=== PATIENT | male | born 1955 | race Caucasian/White ===

== ENCOUNTER 2016-12-22 21:53 | Observation (INO) ==
[2016-12-22] MEDS ORDERED: Ipratropium/Albuterol Neb 3 ML IH ONE (22:19)
--- NOTE | 2016-12-22 22:19 | Emergency Department Note ---
Disposition Clinical Impression: Pneumonia Qualifiers: Pneumonia type: due to unspecified organism Laterality: left Lung location: lower lobe of lung Qualified Code(s): J18.1 - Lobar pneumonia, unspecified organism Disposition: Admitted As Inpatient Condition: Fair URI/Sore Throat HPI - General Chief Complaint: ED Dizziness Stated Complaint: dizziness/SOB Time Seen by Provider: 12/22/16 22:06 Source: patient Mode of arrival: private vehicle Limitations: no limitations Nursing Notes Reviewed: Yes Vital Signs Reviewed: Yes - History of Present Illness HPI Narrative: Patient presents to the ED complaining of cough, shortness of breath, chest congestion and feeling lightheaded. States he has been sick off and on for the past 4 weeks. States cough is only occasionally productive of thick yellow sputum. He reports chronic clear rhinorrhea. No sore throat or sneezing. He has had nausea but no vomiting or diarrhea. His only chest discomfort is related to his congestion and coughing. States symptoms got worse last night and he could not lie flat due to his cough and shortness of breath. Normally can lie flat without difficulty. He does report some swelling of his feet and ankles that been going on for several weeks. He reports subjective fever and chills. No urinary symptoms. States his shoulders are sore but no other myalgias. He does smoke a pack per day for over 40 years. States he has had bronchitis since he was a kid. He does not have a primary care doctor. He does not take any routine medications. No flu shot. States he does have a coworker that was sick recently. Reports a history of asthma but is not on any medications for it. No history of any heart problems. States he used to have high blood pressure as a teen but not any current diagnosis or medications for it. - Related Data Home Medications Medication Instructions Recorded Confirmed Naproxen Sodium [Aleve] 440 mg PO DAILY 12/22/16 12/22/16 Allergies Allergy/AdvReac Type Severity Reaction Status Date / Time No Known Allergies Allergy Verified 12/22/16 21:54 Constitutional: Reports: fever (subjective), chills. Denies: weakness, weight change Eyes: Denies: eye pain, eye discharge, vision change ENT ED: Reports: congestion. Denies: ear pain, throat pain, dental pain, hearing loss, epistaxis, dysphagia Cardiovascular: Reports: as per HPI. Denies: chest pain, palpitations, dyspnea on exertion, edema, syncope Respiratory: Reports: cough, dyspnea, sputum production. Denies: wheezes, hemoptysis, stridor Gastrointestinal: Denies: abdominal pain, nausea, vomiting, diarrhea, constipation, hematemesis, melena, hematochezia Genitourinary: Denies: urgency, dysuria, frequency, hematuria Musculoskeletal: Denies: back pain, neck pain, arthralgia, myalgia Integumentary: Denies: rash, abrasion, lesions Neurological: Denies: headache, weakness, numbness, paresthesias, confusion, abnormal gait, vertigo Psychiatric: Denies: anxiety, depression, suicidal thoughts, homicidal thoughts , auditory hallucinations, visual hallucinations Endocrine: Denies: fatigue Hematological/Lymphatic: Denies: easy bleeding, easy bruising Allergic/Immunologic: Denies: facial swelling, urticaria URI PMH - Past Medical History Medical history: Reports: arthritis, asthma Psychiatric history: Reports: no psych history - Social History Smoking Status: Current every day smoker Alcohol use: Reports: occasionally Drug use: Reports: none Physical Exam - General Limitations: no limitations General appearance: alert, in no apparent distress - Head Head exam: atraumatic, normocephalic, normal inspection - Eye Eye exam: Present: normal appearance, PERRL, EOMI - ENT ENT exam: normal exam, normal oropharynx, mucous membranes moist, TM's normal bilaterally, normal external ear exam - Neck Neck exam: Present: normal inspection, full ROM, trachea midline - Chest Chest inspection: Present: normal inspection, symmetric chest wall rise. Absent : tenderness - Respiratory Respiratory exam: Present: prolonged expiratory phase. Absent: respiratory distress, accessory muscle use - Expanded Respiratory Exam Location: wheezes: Left, Right, Upper, Lower (scattered), rhonchi: Left, Right, Upper, Lower (scattered) - Cardiovascular Cardiovascular exam: Present: regular rate, normal rhythm, normal heart sounds - Abdominal Exam Abdominal exam: Present: soft, Non-Tender. Absent: tenderness, distention, guarding, rebound, rigidity - Extremities Exam Extremities exam: Present: normal inspection, full ROM, pedal edema (trace). Absent: tenderness - Back Exam Back exam: Present: normal inspection, full ROM. Absent: tenderness - Neurological Exam Neurological exam: Present: alert, oriented X3 - Psychiatric Psychiatric exam: Present: normal affect, normal mood - Skin Skin exam: Present: warm, dry, intact, normal color Course Course Narrative: Patient presents to the ED with several weeks of intermittent URI symptoms including productive cough and shortness of breath and chest congestion. He is a smoker with a history of asthma but not on any current medications. He does have a fever of 101 with oxygen saturation 93% on arrival. He had scattered wheezing and rhonchi on exam. He will be given a nebulizer treatment as well as Tylenol all labs and imaging are obtained. Primary concern would be for pneumonia versus URI or undiagnosed COPD with exacerbation. Although I have low suspicion for cardiac etiology given lack of recent medical care, pedal edema and elevated blood pressure, will check EKG, troponin and BNP as well. - Reevaluation(s) Reevaluation #1: Chest x-ray shows left lower lobe pneumonia. He has a significant leukocytosis with left shift. Electrolytes and cardiac labs are normal. Patient's oxygen saturations dropped into the upper 80s and low 90s and he was placed on 2 L oxygen. Given his significant community-acquired pneumonia, oxygen requirement and underlying respiratory disease he will require admission. I discussed all test results and plan of care with the patient who is in agreement. Paging hospitalist at this time to arrange admission. Time: 23:35 Reevaluation #2: I spoke to the hospitalist regional sales coordinator, Dr. Dhaliwal who has accepted the patient. Time: 23:39 Vital Signs Temperature 101.0 F H 12/22/16 21:55 Pulse Rate 102 12/22/16 21:55 Respiratory Rate 18 12/22/16 21:55 Blood Pressure 149/84 12/22/16 21:55 O2 Sat by Pulse Oximetry 93 L 12/22/16 21:55 Temperature 97.7 F 12/23/16 00:01 Pulse Rate 102 12/22/16 23:25 Respiratory Rate 18 12/23/16 00:01 Blood Pressure 117/78 12/23/16 00:01 O2 Sat by Pulse Oximetry 92 L 12/22/16 23:25 Oxygen Delivery Oxygen Delivery Nasal Cannula Upper Respiratory Infection - Differential Diagnosis Differential Diagnosis: Likely: upper respiratory infection, other viral infection, bronchitis, pneumonia - Medical Records Medical records reviewed: Yes I reviewed the patient's medical records. - Lab Data Lab results reviewed: Yes I reviewed the patient's lab results. Result diagrams: 12/22/16 22:25 12/22/16 22:25 Lab Results 12/22/16 12/22/16 12/22/16 Range/Units 22:25 22:25 22:25 WBC 22.7 H (4.3-11.1) K/mcL RBC 5.49 (4.19-5.50) M/mcL Hgb 17.3 H (12.9-16.9) g/dL Hct 49.9 (37.5-50.1) % MCV 90.9 (83.0-100.0) fL MCH 31.5 (28.0-33.3) pg MCHC 34.7 (31.6-35.5) g/dL RDW 14.4 (11.5-14.5) % Plt Count 115 L (140-400) K/mcL MPV 9.5 (9.4-12.4) fL Immature Gran % 1.9 (0-4) % Seg Neutrophils % 91.1 % Lymphocytes % 3.4 % Monocytes % 3.4 % Eosinophils % 0.0 % Basophils % 0.2 % Neutrophils # 20.7 H (1.6-8.9) K/mcL Lymphocytes # 0.8 (0.6-4.6) K/mcL Monocytes # 0.8 (0.0-1.3) K/mcL Eosinophils # 0.0 (0.0-0.6) K/mcL Basophils # 0.1 (0.0-0.2) K/mcL Sodium 135 L (136-145) mEq/L Potassium 4.3 (3.5-4.5) mEq/L Chloride 100 (98-109) mEq/L Carbon Dioxide 22 (19-29) mEq/L BUN 13 (8-26) mg/dL Creatinine 0.86 (0.72-1.25) mg/dL Est GFR ( Amer) > 60 (> 60) Est GFR (Non-Af Amer) > 60 (> 60) BUN/Creatinine Ratio 15 (6-26) Glucose 111 H (70-99) mg/dL Calculated Osmolality 281 (280-300) Calcium 10.3 (8.6-10.8) mg/dL Troponin I (0-0.03) ng/mL B-Natriuretic Peptide 45 (0-100) pg/mL 12/22/16 Range/Units 22:25 WBC (4.3-11.1) K/mcL RBC (4.19-5.50) M/mcL Hgb (12.9-16.9) g/dL Hct (37.5-50.1) % MCV (83.0-100.0) fL MCH (28.0-33.3) pg MCHC (31.6-35.5) g/dL RDW (11.5-14.5) % Plt Count (140-400) K/mcL MPV (9.4-12.4) fL Immature Gran % (0-4) % Seg Neutrophils % % Lymphocytes % % Monocytes % % Eosinophils % % Basophils % % Neutrophils # (1.6-8.9) K/mcL Lymphocytes # (0.6-4.6) K/mcL Monocytes # (0.0-1.3) K/mcL Eosinophils # (0.0-0.6) K/mcL Basophils # (0.0-0.2) K/mcL Sodium (136-145) mEq/L Potassium (3.5-4.5) mEq/L Chloride (98-109) mEq/L Carbon Dioxide (19-29) mEq/L BUN (8-26) mg/dL Creatinine (0.72-1.25) mg/dL Est GFR ( Amer) (> 60) Est GFR (Non-Af Amer) (> 60) BUN/Creatinine Ratio (6-26) Glucose (70-99) mg/dL Calculated Osmolality (280-300) Calcium (8.6-10.8) mg/dL Troponin I 0.02 (0-0.03) ng/mL B-Natriuretic Peptide (0-100) pg/mL - Radiology Data Radiology results reviewed: Yes I reviewed the patient's radiology results. ITS Impressions Chest X-Ray 12/22/16 22:20 IMPRESSION: Findings consistent with left lower lobe pneumonia. Radiographic follow up to resolution is recommended. D/ / Kam Shaffer MD / Kam Shaffer MD Interpreting Provider: Kam Shaffer MD - EKG Data EKG attestation: Yes I reviewed and interpreted this EKG. EKG shows normal: sinus rhythm Rate: tachycardia Rhythm: NSR [place]/QRS: normal When compared to previous EKG there are: previous EKG unavailable Interpretation: no acute changes, normal EKG
[2016-12-22 22:35] LABS: Basophils # 0.1 K/mcL (0.0-0.2); Basophils % 0.2 %; Hematocrit 49.9 % (37.5-50.1); Hemoglobin 17.3 g/dL (12.9-16.9); Immature Granulocytes % 1.9 % (0-4); Lymphocytes # 0.8 K/mcL (0.6-4.6); Lymphocytes % 3.4 %; Mean Corpuscular HGB Conc 34.7 g/dL (31.6-35.5); Mean Corpuscular Hemoglobin 31.5 pg (28.0-33.3); Mean Corpuscular Volume 90.9 fL (83.0-100.0); Mean Platelet Volume 9.5 fL (9.4-12.4); Monocytes # 0.8 K/mcL (0.0-1.3); Monocytes % 3.4 %; Neutrophils # 20.7 K/mcL (1.6-8.9); Platelet Count 115 K/mcL (140-400); Red Blood Count 5.49 M/mcL (4.19-5.50); Red Cell Distribution Width 14.4 % (11.5-14.5); Segmented Neutrophils % 91.1 %
[2016-12-22 22:50] LABS: BUN/Creatinine Ratio 15 (6-26); Blood Urea Nitrogen 13 mg/dL (8-26); Calcium 10.3 mg/dL (8.6-10.8); Carbon Dioxide 22 mEq/L (19-29); Chloride 100 mEq/L (98-109); Glucose 111 mg/dL (70-99); Osmolality,Calculated 281 (280-300); Potassium 4.3 mEq/L (3.5-4.5); Sodium 135 mEq/L (136-145); eGFR For African Americans > 60 (> 60); eGFR For Non-African Americans > 60 (> 60)
[2016-12-22] MEDS ORDERED: Levofloxacin 750 MG/150 ML 750 MG/150 ML BAG IVPB ONE (23:34)
[2016-12-23] MEDS ORDERED: Naloxone 0.4 MG/ML INJ IVP PRN ×2 (00:30→02:18)
[2016-12-23] MEDS ORDERED: Acetaminophen 325 MG TABLET PO PRN ×2 (00:30→02:18)
[2016-12-23] MEDS ORDERED: Ipratropium/Albuterol Neb 3 ML IH SCH (04:00)
[2016-12-23] MEDS: Ipratropium/Albuterol Neb 3 ML IH SCH ×2 (04:54→10:36)
[2016-12-23 14:06] LABS: Acinetobacter baumannii by PCR Not Detected (Not Detect); Candida albicans by PCR Not Detected (Not Detect); Candida glabrata by PCR Not Detected (Not Detect); Enterococcus by PCR Not Detected (Not Detect); Escherichia coli by PCR Not Detected (Not Detect); Klebsiella oxytoca by PCR Not Detected (Not Detect); Klebsiella pneumoniae by PCR Not Detected (Not Detect); Pseudomonas aeruginosa by PCR Not Detected (Not Detect); Serratia marcescens by PCR Not Detected (Not Detect); Staphylococcus aureus by PCR Not Detected (Not Detect); Streptococcus agalactiae(B)PCR Not Detected (Not Detect); Streptococcus by PCR ***DETECTED*** (Not Detect); Streptococcus pyogenes (A) PCR Not Detected (Not Detect)
[2016-12-23 14:07] LABS: Candida krusei by PCR Not Detected (Not Detect); Candida parapsilosis by PCR Not Detected (Not Detect); Candida tropicalis by PCR Not Detected (Not Detect)
[2016-12-23 14:08] LABS: Streptococcus pneumoniae PCR ***DETECTED*** (Not Detect)
--- NOTE | 2016-12-23 14:41 | Internal Med History&Physical ---
Date of Encounter: 12/23/16 Time of Encounter: 14:15 Assessment and Plan (1) Pneumonia Current visit: Yes Status: Acute He was started on IV Levaquin in the emergency room. Will continue this and add lactobacillus. Recheck labs in a.m. Qualifiers: Pneumonia type: due to unspecified organism Laterality: left Lung location: lower lobe of lung Qualified Code(s): J18.1 - Lobar pneumonia, unspecified organism Internal Medicine - H&P: HPI Chief complaint: Dyspnea Admitted From: Home Plans for Post Hospital Care: Home History of present illness: Mr. Gleason is a 61 year old male who came to the emergency room stating he had increasing dyspnea over the preceding 24 hours. He stated he had not been feeling well for the last 4-6 weeks and had coughing and dyspnea. He was evaluated in the emergency room found to have left lower lobe infiltrate on chest x-ray. He had leukocytosis with left shift. He was admitted to [facility] floor for ongoing care needs. He states he had previous pneumonia diagnosis as a young adult. His respiratory history is significant for having smoked since age 20 up 1-1/2 packs per day. He does not wear home oxygen. He had pulmonary function test over 10 years ago and was told they were unremarkable. Past Med Surg Social Fam HX - Past Medical History Medical history: arthritis, asthma Psychiatric history: no psych history - Past Surgical History Surgical History: herniorrhaphy - Social History Smoking Status: Current every day smoker Packs per day: 1 Smokeless Tobacco Status: No Alcohol use: occasionally Drug use: none Internal Medicine - H&P: Meds Naproxen Sodium [Aleve] 440 mg PO DAILY 12/22/16 [History] Allergies No Known Allergies Allergy (Verified 12/22/16 21:54) All Systems PM: A 10-system review of systems was performed and is negative for pertinent findings except as documented above in the HPI. Review of systems: Gen.: He states his weight is stable the last few months Cardiovascular: He denies hypertension CA heart failure angina DVT or pulmonary embolus Respiratory: As per history of present illness GI: Denies disorders of his liver gallbladder or exocrine pancreas : He denies hematuria dysuria or kidney stones Neurologic: He denies large distribution strokes or seizures. Endocrine: He denies diabetes or thyroid disease or hyperlipidemia Hematology/oncology: Denies blood disorders cancers or anemia Psychiatric: He denies anxiety depression or other mental health issues [place] skeletal: He has DJD but denies gout or other bone joint or muscle disorders. - Constitutional Vitals: Temp Pulse Resp BP Pulse Ox 97.5 F L 81 16 133/76 95 12/23/16 10:51 12/23/16 10:51 12/23/16 10:51 12/23/16 10:51 12/23/16 10:51 Exam: Gen.: He is a well-developed well-nourished male who appears in no severe distress at present time. HEENT: Head is atraumatic and normocephalic. Eyes: EOMI. There is no scleral icterus. Mouth: Mucosa is moist. Neck: Supple and nontender. There is no thyromegaly or adenopathy noted. Heart: Regular without murmurs gallops or ectopics. Lungs: No wheezes or crackles are heard. Abdomen: Soft and nontender. No masses or guarding are noted. Extremities: There is no cyanosis edema or clubbing noted. Dorsalis pedis and posttibial pulses are trace palpable bilaterally.. Neurologic: Mental status: He is talkative and a good historian. Cranial nerves : Smile is symmetric. Forehead wrinkles bilaterally. Tongue protrudes midline. EOMI. Motor: There is no pronator drift. Cerebellar: Finger to nose is intact bilaterally. Skin: Warm and dry Internal Med - H&P Results - Labs CBC & Chem 7: 12/22/16 22:25 12/22/16 22:25 - VTE Reasons for not Prescribing Prophylaxis: Treatment not Indicated - Low risk for VTE
[2016-12-23] MEDS ORDERED: Albuterol 2.5 MG/3 ML NEBULIZER IH PRN (14:45)
--- NOTE | 2016-12-23 15:03 | Electrocardiograph Report ---
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
[2016-12-23] MEDS ORDERED: Lactobacillus 1 EACH CAP.SPRINK PO SCH (21:00)
[2016-12-24] MEDS ORDERED: Levofloxacin 750 MG/150 ML 750 MG/150 ML BAG IVPB SCH
[2016-12-24 05:55] LABS: Basophils % 0.3 %; Eosinophils # 0.2 K/mcL (0.0-0.6); Eosinophils % 1.3 %; Hematocrit 47.1 % (37.5-50.1); Immature Granulocytes % 0.8 % (0-4); Lymphocytes # 1.1 K/mcL (0.6-4.6); Lymphocytes % 9.5 %; Mean Corpuscular Hemoglobin 31.5 pg (28.0-33.3); Mean Corpuscular Volume 92.7 fL (83.0-100.0); Mean Platelet Volume 9.5 fL (9.4-12.4); Monocytes # 0.7 K/mcL (0.0-1.3); Monocytes % 6.3 %; Platelet Count 116 K/mcL (140-400); Red Blood Count 5.08 M/mcL (4.19-5.50); Red Cell Distribution Width 14.2 % (11.5-14.5); Segmented Neutrophils % 81.8 %
[2016-12-24 05:56] LABS: Neutrophils # 9.2 K/mcL (1.6-8.9)
[2016-12-24 06:33] VITALS: BP 116/73
--- NOTE | 2016-12-24 08:43 | Discharge Summary ---
Date of Encounter: 12/24/16 Time of Encounter: 08:30 - Discharge Diagnosis (1) Pneumonia Priority: Primary Status: Acute Qualifiers: Pneumonia type: due to Pneumococcus Laterality: left Lung location: lower lobe of lung Qualified Code(s): J13 - Pneumonia due to Streptococcus pneumoniae - Discharge Medications Prescriptions: Lactobacillus [Culturelle] 1 each PO BID #10 cap.sprink Levofloxacin [Levaquin] 750 mg PO DAILY #5 tablet Home Medications: Naproxen Sodium [Aleve] 440 mg PO DAILY 12/22/16 [History] Lactobacillus [Culturelle] 1 each PO BID #10 cap.sprink 12/24/16 [Rx] Levofloxacin [Levaquin] 750 mg PO DAILY #5 tablet 12/24/16 [Rx] Allergies/Adverse Reactions: Allergies No Known Allergies Allergy (Verified 12/22/16 21:54) Procedures/tests Complete & Pending: Procedures Performed prior 72 hours Category Date Time Status ECG 12 lead ECG [ECG] Routine Y 12/22/16 22:00 Completed Date of admission: 12/22/16 23:44 Primary care physician: PCP NO - Patient Status Disposition: Home, Self-Care Condition: Fair Overall status at discharge: patient is progressing back to baseline - Discharge Instructions Follow Up With: NO,PCP [Primary Care Provider] - 1 week - Diet and Activity Activity: resume usual activities as tolerated Diet: advance to your usual diet Hospital course: Mr. Gleason is a 61 year old male who came to the emergency room stating he had increasing dyspnea over the preceding 24 hours. He stated he had not been feeling well for the last 4-6 weeks and had coughing and dyspnea. He was evaluated in the emergency room found to have left lower lobe infiltrate on chest x-ray. He had leukocytosis with left shift. He was admitted to [facility] floor for ongoing care needs. Initial orders were written by the emergency room physician. I saw him on December 23 and performed a history and physical. He was started on IV Levaquin in emergency room. I added lactobacillus. Serology testing showed PCR positive for Streptococcus pneumoniae. He responded clinically to Levaquin with WBC decreasing to 11.2 K on December 24 with 81.8% segs present. He remained afebrile after the first hospital day. He will continue with antibiotic and probiotic for 5 days after discharge. On December 24 he felt improved and wished to be discharged home. Room air oximetry on 6 minute walk dropped to 87% on ambulation. He declined home oxygen stating he wished to recover from the pneumonia and agreed to discontinue smoking. He can be tested at his PCP office at a follow-up visit in one week to see if room air oximetry has improved. I strongly encouraged him to become a nonsmoker. He will follow up at [facility] in one week. - Time Spent with Patient Total time spent providing and/or coordinating discharge services: - Constitutional Vitals: Temp Pulse Resp BP Pulse Ox 97.8 F 62 14 116/73 94 L 12/24/16 06:29 12/24/16 06:29 12/24/16 06:29 12/24/16 06:29 12/24/16 07:18 - VTE Reasons for not Prescribing Prophylaxis: Treatment not Indicated - Low risk for VTE
== END 2016-12-24 09:15 | disposition home or self-care (01) ==
LOC: INPPIK 21:53 → EMEROOPIK 21:53 → INPPIK 12-23 00:33
PROVIDERS: ADMIT Internal Medicine; ATTEND Internal Medicine